=== PATIENT | female | born 1990 | race Caucasian/White ===

== ENCOUNTER 2021-10-14 21:53 | Inpatient (IN) | payer OTHER ==
[~2021-10-14 21:53] MED LIST: BUPRENORPHIN-N1 EACH SL; COLACE 100MG C100 MG PO; IBUPROFEN600 MG PO; PRENATAL VITAM1 EAC5 PO; SUBUTEX 8 MG TAB8 MG SL
[2021-10-14 23:12] LABS: RED BLOOD COUNT 5.02 M/UL (4.00-5.10); WHITE BLOOD COUNT 8.7 K/UL (4.5-11.0)
[2021-10-17] MEDS ORDERED: COLACE 100MG C100 MG PO (12:09)
[2021-10-17] MEDS ORDERED: IBUPROFEN600 MG PO (12:09)
== END 2021-10-17 15:30 | disposition home or self-care (01) | DRG 806 ==
LOC: GENOP 21:53 → OB 22:05 → GENOP 23:00 → OB 10-15 01:06 → GENOP 10-15 01:06 → OB 10-15 02:15 → EDSTATUS 10-21 16:28
PROVIDERS: ADMIT Obstetrics & Gynecology
PROC: 10E0XZZ Delivery of Products of Conception, External Approach (ICD-10-PCS; principal; 2021-10-15)
PROC: 10907ZC Drainage of Amniotic Fluid, Therapeutic from Products of Conception, Via Natural or Artificial Opening (ICD-10-PCS; 2021-10-15)
PROC: 3E033VJ Introduction of Other Hormone into Peripheral Vein, Percutaneous Approach (ICD-10-PCS; 2021-10-15)
PROC: 3E0234Z Introduction of Serum, Toxoid and Vaccine into Muscle, Percutaneous Approach (ICD-10-PCS; 2021-10-15)
DX: O99.324 Drug use complicating childbirth (principal); F11.20 Opioid dependence, uncomplicated; Z37.0 Single live birth; O99.334 Smoking (tobacco) complicating childbirth; Z20.822 Contact with and (suspected) exposure to COVID-19; O99.02 Anemia complicating childbirth; D64.9 Anemia, unspecified; F17.200 Nicotine dependence, unspecified, uncomplicated; Z3A.38 38 weeks gestation of pregnancy; Z23 Encounter for immunization
CPT/HCPCS: 80307; 81001; 85014; 85018; 85025; 90715; J2210; J2590; U0002